=== PATIENT | male | born 1960 | race Hispanic/Latino ===

== ENCOUNTER → 2018-09-30 | Day surgery (SDC) | payer SELFPAY ==
[~2018-09-30] MED LIST: BACITRACIN 50,000 UNIT VIAL ONE; BUPIVACAINE HCL 0.5% INJ 30 ML VIAL INJ ONE; CEFAZOLIN SOD 2 GM/D5W 50ML 50 ML IV ONE; DEXAMETHASONE SOD PHOS INJ 4 MG/ML VIAL ONE; FENTANYL CITRATE/PF 100MCG/2 ML INJ ONE; IBUPROFEN400 MG PO; LIDOCAINE HCL 2% LOCAL INJ 5 ML SDV VIAL INJ ONE; MIDAZOLAM HCL 2 MG/2 ML VIAL ONE; ONDANSETRON HCL INJ 2 MG/ML VIAL ONE; PROPOFOL IV EMULSION 10 MG/ML 20 ML VIAL ONE; SEVOFLURANE INHAL SOLN 250 ML PEN BTL ONE; TYLENOL WITH C1 EACH PO
[2018-09-30 13:00] VITALS: BP 121/73
--- NOTE | 2018-10-01 14:48 | Operative Report ---
DATE OF PROCEDURE: September 30, 2018 PREOPERATIVE DIAGNOSIS: Comminuted intra-articular right distal radius fracture. POSTOPERATIVE DIAGNOSIS: Comminuted intra-articular right distal radius fracture. PROCEDURE PERFORMED: Attempted closed reduction of the right distal radius fracture followed by an open reduction with percutaneous pin and plate fixation of the right distal radius fracture. COIN ROLLING MACHINE OPERATOR: Tammie Mathew ANESTHESIA: General endotracheal intubation anesthesia. IV FLUIDS: Per the anesthesia record. DESCRIPTION OF OPERATIVE PROCEDURE: Mr. Chaudhry was taken to the operating room and placed in the supine position on the operating table. Following induction of general anesthesia as well as endotracheal intubation, the patient's right upper extremity was examined under anesthesia. He had a gross deformity at the level of the wrist joint. Fluoroscopic evaluation of that joint demonstrated a comminuted, intra-articular, displaced, distal radius fracture. The patient's upper extremity was prepped and draped in standard surgical fashion. The case was begun by attempting closed reduction of the patient's wrist injury. This failed to reduce the fracture in a stable fashion. Evaluation of the fracture found significant dorsal displacement as well as comminution that extended into the articular surface. The decision was made to approach the fracture dorsally. An incision was created over the 4th dorsal wrist compartment. This incision was carried through the skin only. Blunt dissection was used deepen the incision, and the 4th dorsal wrist compartment was entered without difficulty. Care was also taken to free the 3rd dorsal wrist compartment. The extensor tendons were then elevated both medially and laterally off of the dorsal surface of the bone to allow for exposure of the fracture site. The fracture was, therefore, identified and reduced using a plate to buttress the dorsal fracture displacement. This resulted in realignment of the distal fracture fragments with the shaft. There was still intra-articular diastasis. A clamp was then placed over the distal fracture fragments to realign the articular surface, and this resulted in acceptable realignment of the patient's injury. Two pins were then inserted from distal to proximal transfixing the distal fracture fragments in their reduced position both to each other as well as to the shaft. The fracture was then further stabilized using locking screws through the plate. This resulted in acceptable realignment of his severe injury. The wound was copiously irrigated. Fluoroscopic evaluation identified acceptable realignment of the patient's injury and re-establishment of the patient's articular surface. The 4th dorsal wrist compartment was closed. Care was taken to ensure that all extensor tendons were not down by the plate. The wound was irrigated and closed in a multilayer fashion. Sterile dressings were applied as well as a well-padded sugar tong splint. The patient was then awakened and taken to the postanesthesia care unit in stable condition. Tammie Mathew acted as project construction assistant manager for this case and was necessary for prepping and draping the patient as well as retraction of soft tissues during the case that allowed this case to be successful. Job#: [id number]
== END | disposition home or self-care (01) ==
LOC: OR 07:52 → EDSEX 10:30
PROVIDERS: ATTEND Specialist
DX: S52.571A Other intraarticular fracture of lower end of right radius, initial encounter for closed fracture (principal); W18.39XA Other fall on same level, initial encounter; Y93.89 Activity, other specified; Y92.008 Other place in unspecified non-institutional (private) residence as the place of occurrence of the external cause; Y99.8 Other external cause status; Z01.810 Encounter for preprocedural cardiovascular examination
CPT/HCPCS: 25608; 93005; C1713 ×4; J0690; J1100; J2001; J2250; J2405; J2704; 76001